=== PATIENT | female | born 1975 | race African-American/Black ===

== ENCOUNTER → 2016-08-03 | Outpatient (CLI) | payer BC, OTHER ==
[~2016-08-03] MED LIST: ACETAMINOPHEN325 M1 PO; AMLODIPINE BESY10 MG PO; CEFDINIR PO; DHA PO; IBUPROFEN 400400 M1 PO; IBUPROFEN 600600 M1 PO; MEDICOOL'S DIA1 EAC1 MC; METFORMIN PO; NAPROSYN500 MG; ORTHO-NOVUM1 EAC2; PANTOPRAZOLE SO40 M1 PO; PHENERGAN-CODE120 ML PO; PRENATAL; PROTONIX40 M2; PROTONIX40 M2 PO; SUDAFED30 MG; TOPROL XL100 MG PO; VENTOLIN17 GM INH; ZPAK PO
== END ==
LOC: RAD 11:45
DX: Z12.31 Encounter for screening mammogram for malignant neoplasm of breast (principal)

== ENCOUNTER → 2017-06-18 | Outpatient (CLI) | payer BC, OTHER | LOC: ULTRA 06-12 09:55 | DX: I70.8 Atherosclerosis of other arteries (principal); R09.89 Other specified symptoms and signs involving the circulatory and respiratory systems ==

== ENCOUNTER → 2017-08-22 | Outpatient (CLI) | payer BC, OTHER | LOC: ULTRA 10:39 | DX: R10.9 Unspecified abdominal pain (principal); Z90.49 Acquired absence of other specified parts of digestive tract ==

== ENCOUNTER → 2017-11-01 | Outpatient (CLI) | payer BC, OTHER | LOC: RAD 14:22 | DX: Z12.31 Encounter for screening mammogram for malignant neoplasm of breast (principal) ==

== ENCOUNTER → 2018-12-04 | Outpatient (CLI) | payer BC, OTHER | LOC: RAD 09:19 | DX: Z12.31 Encounter for screening mammogram for malignant neoplasm of breast (principal) ==